=== PATIENT | female | born 1950 | race Two or more races ===

== ENCOUNTER 2017-01-20 22:05 | Emergency (ER) | payer MEDICARE, OTHER ==
[~2017-01-20] VITALS: Ht 162.6 cm; Wt 99.8 kg
[2017-01-20] MEDS ORDERED: HYDROmorphone HCL 2 MG/ML VL ONE (23:58)
[2017-01-21] MEDS ORDERED: HYDROmorphone HCL 2 MG/ML VL IV ONE ×2 (02:45)
[2017-01-21] MEDS ORDERED: ONDANSETRON HCL 4 MG/2 ML VIAL IV ONE ×2 (02:45)
[2017-01-21 04:13] VITALS: BP 168/87
== END 2017-01-21 04:42 | disposition home or self-care (01) ==
LOC: EDBD 22:19 → ER 22:19
DX: S42.212A Unspecified displaced fracture of surgical neck of left humerus, initial encounter for closed fracture (principal); E11.9 Type 2 diabetes mellitus without complications; I10 Essential (primary) hypertension; Z88.6 Allergy status to analgesic agent; W11.XXXA Fall on and from ladder, initial encounter; Y93.89 Activity, other specified; Y99.8 Other external cause status; Y92.098 Other place in other non-institutional residence as the place of occurrence of the external cause
CPT/HCPCS: 72125; 72128; 73030; 73060; 96374; 96375; 96376; 99284; J1170; J2405